=== PATIENT | male | born 1975 | race Caucasian/White ===

== ENCOUNTER 2017-06-17 08:57 | Emergency (ER) | payer OTHER, MEDICAID ==
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
[2017-06-17] MEDS ORDERED: LIDOCAINE 4%/MENTHOL 1% PATCH TD ONE (09:26)
[2017-06-17] MEDS ORDERED: CYCLOBENZAPRINE 10 MG TAB PO ONE (09:26)
[2017-06-17] MEDS ORDERED: KETAMINE 500 MG/10 ML VIAL NASAL ONE (09:26)
[2017-06-17 09:50] VITALS: O2SAT 97
[2017-06-17 11:12] VITALS: BP 127/84; PULSE 73; RESP 20; TEMP 98.3
[2017-06-17] MEDS ORDERED: PATCH REMOVAL 1 EA PATCH TD SCH (21:00)
== END 2017-06-17 11:00 | disposition home or self-care (01) ==
PROC: 0H9KXZZ Drainage of Right Lower Leg Skin, External Approach (ICD-10-PCS; principal; 2017-06-17)
DX: M51.36 Other intervertebral disc degeneration, lumbar region (principal); M46.96 Unspecified inflammatory spondylopathy, lumbar region; L02.415 Cutaneous abscess of right lower limb; G89.29 Other chronic pain; F17.200 Nicotine dependence, unspecified, uncomplicated